=== PATIENT | male | born 1945 | race Two or more races ===

== ENCOUNTER 2023-11-14 12:55 | Emergency (ER) | payer OTHER, MEDICAID ==
[~2023-11-14] VITALS: Ht 167.6 cm; Wt 92.5 kg
[2023-11-14 14:23] VITALS: BP 146/89; PULSE 75; RESP 20; TEMP 98.2; O2SAT 94
[2023-11-14] MEDS ORDERED: PROM1SOL4 PO (14:39)
[2023-11-14] MEDS ORDERED: LEVO500T91 PO (14:39)
== END 2023-11-14 14:48 | disposition home or self-care (01) ==
LOC: ER 12:55
DX: J20.9 Acute bronchitis, unspecified (principal); I10 Essential (primary) hypertension; E78.5 Hyperlipidemia, unspecified
CPT/HCPCS: 71046

== ENCOUNTER 2024-05-02 21:29 | Inpatient (IN) | payer OTHER, MEDICAID ==
[~2024-05-02] VITALS: Ht 172.7 cm; Wt 95.4 kg
[~2024-05-02 21:29] MED LIST: LEVO500T91 PO; PROM1SOL4 PO
[2024-05-02] MEDS: ACETAMINOPHEN 500 MG TAB PO ONE (21:46)
[2024-05-02 22:04] LABS: Basophils # (auto) 0 10 ^3/uL (0-0.2); Basophils % (auto) 0.2 % (0.0-2.0); Eosinophils # (auto) 0 10 ^3/uL (0-0.8); Eosinophils % (auto) 0.1 % (0.0-7.0); Hematocrit 43.6 % (41.0-53.0); Hemoglobin 15.1 g/dL (13.5-17.5); Lymphocytes # (auto) 0.5 10 ^3/uL (0.4-5.4); Lymphocytes % (auto) 4.3 % (10.0-50.0); Mean Corpuscular Hgb Conc. 34.5 g/dL (32.0-36.0); Mean Corpuscular Volume 98.5 fL (80.0-100.0); Monocytes # (auto) 0 10 ^3/uL (0-1.3); Monocytes % (auto) 0.4 % (0.0-12.0); Neutrophils # (auto) 10.1 10 ^3/uL (1.6-8.6); Nucleated Red Blood Cells % 0.1 %; Red Blood Cells 4.43 10^6/uL (4.5-5.90); Red Cell Distribution Width 12.5 % (11.8-14.3); White Blood Cell 10.7 10^3/uL (4.4-10.8)
[2024-05-02 22:22] LABS: Alanine Aminotransferase 13 U/L (7-40); Albumin 3.9 g/dL (3.2-4.8); Alkaline Phosphatase 108 U/L (46-116); Anion Gap 7 (5-15); Aspartate Aminotransferase 16 U/L (13-40); BUN/Creatinine Ratio 9.3 (10.0-20.0); Bilirubin, Total 2.1 mg/dL (0.2-1.0); Blood Urea Nitrogen 10 mg/dL (9-23); Calcium 9.7 mg/dL (8.7-10.4); Carbon Dioxide 21 mmol/L (20-30); Chloride 108 mmol/L (98-107); Glucose 179 mg/dL (74-106); Potassium 3.6 mmol/L (3.5-5.1); Sodium 136 mmol/L (136-145)
[2024-05-02 22:33] LABS: Lactic Acid w/Reflex 2.5 mmol/L (0.4-2.0)
[2024-05-03] VITALS (7 sets, daily range): BP systolic 118–145; BP diastolic 60–72; PULSE 74–95; RESP 15–17; TEMP 98.2–103.2; O2SAT 92–96
[2024-05-03 02:45] LABS: Urine Bacteria None Seen /hpf (None Seen)
[2024-05-03 02:57] LABS: Urine Blood 3+ /uL (Negative); Urine Clarity Ex.Turbid (Clear); Urine Color Dark-Brown (Yellow); Urine Hyaline Cast MOD /lpf (0 - 2); Urine Mucus FEW (None Seen); Urine Protein, UAD 3+ (Negative); Urine Specific Gravity 1.031 (1.001-1.035); Urine Urobilinogen Normal (Negative); Urine WBC 1230 /hpf (0 - 3); Urine WBC Clumps PRESENT /hpf (None Seen); Urine pH 5.5 (5.0-9.0)
[2024-05-03] MEDS: SODIUM CHLORIDE 0.9% 2,000 ML IV ONE (03:12)
[2024-05-03] MEDS: SODIUM CHLORIDE 0.9% 1,000 ML IV ONE (03:36)
[2024-05-03] MEDS: PIPERACILLIN-TAZO 4.5GM 100 ML IV ONE (04:05)
[2024-05-03] MEDS: SODIUM CHLORIDE 0.9% 1,000 ML IV SCH (05:04)
[2024-05-03] MEDS: levoFLOXacin 500MG 100 ML IV SCH (10:00)
[2024-05-03 11:15] LABS: Basophils # (auto) 0 10 ^3/uL (0-0.2); Basophils % (auto) 0.2 % (0.0-2.0); Eosinophils # (auto) 0 10 ^3/uL (0-0.8); Hemoglobin 14.6 g/dL (13.5-17.5); Lymphocytes # (auto) 1.2 10 ^3/uL (0.4-5.4); Mean Corpuscular Hemoglobin 34.2 pg (28.0-32.0)
[2024-05-03 11:16] LABS: Eosinophils % (auto) 0.1 % (0.0-7.0); Hematocrit 42.4 % (41.0-53.0); Lymphocytes % (auto) 6.2 % (10.0-50.0); Mean Corpuscular Hgb Conc. 34.4 g/dL (32.0-36.0); Mean Corpuscular Volume 99.6 fL (80.0-100.0); Monocytes # (auto) 0.7 10 ^3/uL (0-1.3); Monocytes % (auto) 3.7 % (0.0-12.0); Neutrophils # (auto) 16.6 10 ^3/uL (1.6-8.6); Neutrophils % (auto) 89.8 % (37.0-80.0); Red Blood Cells 4.26 10^6/uL (4.5-5.90); Red Cell Distribution Width 12.6 % (11.8-14.3); White Blood Cell 18.5 10^3/uL (4.4-10.8)
[2024-05-03 11:35] LABS: Chloride 109 mmol/L (98-107); Potassium 4.2 mmol/L (3.5-5.1); Sodium 137 mmol/L (136-145)
[2024-05-03 11:36] LABS: Anion Gap 5 (5-15); Calcium 9.5 mg/dL (8.5-10.1); Carbon Dioxide 23 mmol/L (20-30)
[2024-05-03 11:41] LABS: BUN/Creatinine Ratio 10.5 (10.0-20.0); Blood Urea Nitrogen 12 mg/dL (9-23); Glucose 151 mg/dL (74-106)
[2024-05-03] MEDS: ACETAMINOPHEN 325 MG TAB PO PRN (12:21)
[2024-05-03 12:24] LABS: Lactic Acid w/Reflex 2.3 mmol/L (0.4-2.0)
[2024-05-03 13:55] LABS: Hepatitis B Surface Antigen Negative (Negative)
[2024-05-03 13:57] LABS: Hepatitis C Antibody Reactive (Negative)
[2024-05-03] MEDS ORDERED: BENA40TA71 PO (17:23)
[2024-05-03] MEDS ORDERED: AMLO1TAB22 PO (17:24)
[2024-05-03] MEDS ORDERED: TAMS0.4C36 PO (17:24)
[2024-05-04] VITALS (9 sets, daily range): BP systolic 117–141; BP diastolic 55–66; PULSE 62–86; RESP 17–20; TEMP 98.1–100.1; O2SAT 90–97
[2024-05-04] MEDS ORDERED: ERTAPENEM SOD INJ 1 GM in SODIUM CHL 0.9% 50 ML IV SCH (01:45)
[2024-05-04] MEDS: ERTAPENEM SOD INJ 1 GM in SODIUM CHL 0.9% 50 ML IV SCH (09:28)
[2024-05-04 16:31] LABS: Basophils # (auto) 0 10 ^3/uL (0-0.2); Basophils % (auto) 0.2 % (0.0-2.0); Eosinophils # (auto) 0 10 ^3/uL (0-0.8); Eosinophils % (auto) 0.3 % (0.0-7.0); Hematocrit 39.5 % (41.0-53.0); Hemoglobin 13.3 g/dL (13.5-17.5); Lymphocytes # (auto) 1.4 10 ^3/uL (0.4-5.4); Lymphocytes % (auto) 11.2 % (10.0-50.0); Mean Corpuscular Hemoglobin 33.6 pg (28.0-32.0); Mean Corpuscular Hgb Conc. 33.6 g/dL (32.0-36.0); Mean Corpuscular Volume 100.1 fL (80.0-100.0); Monocytes # (auto) 1.1 10 ^3/uL (0-1.3); Monocytes % (auto) 9.1 % (0.0-12.0); Neutrophils # (auto) 9.7 10 ^3/uL (1.6-8.6); Neutrophils % (auto) 79.2 % (37.0-80.0); Red Blood Cells 3.95 10^6/uL (4.5-5.90); Red Cell Distribution Width 12.8 % (11.8-14.3); White Blood Cell 12.2 10^3/uL (4.4-10.8)
[2024-05-05] VITALS (8 sets, daily range): BP systolic 125–148; BP diastolic 62–73; PULSE 52–64; RESP 17–20; TEMP 98.1–99.1; O2SAT 94–100
[2024-05-05 06:37] LABS: Calcium 9.3 mg/dL (8.7-10.4); Chloride 109 mmol/L (98-107); Potassium 4.4 mmol/L (3.5-5.1); Sodium 139 mmol/L (136-145)
[2024-05-05 06:38] LABS: Anion Gap 5 (5-15); Carbon Dioxide 25 mmol/L (20-30)
[2024-05-05 06:43] LABS: BUN/Creatinine Ratio 12.4 (10.0-20.0); Blood Urea Nitrogen 11 mg/dL (9-23); Glucose 114 mg/dL (74-106)
[2024-05-05 07:19] LABS: Basophils # (auto) 0 10 ^3/uL (0-0.2); Eosinophils # (auto) 0.1 10 ^3/uL (0-0.8); Neutrophils % (auto) 73.3 % (37.0-80.0); Red Blood Cells 3.99 10^6/uL (4.5-5.90); Red Cell Distribution Width 12.7 % (11.8-14.3)
[2024-05-05 07:23] LABS: Basophils % (auto) 0.3 % (0.0-2.0); Eosinophils % (auto) 0.7 % (0.0-7.0); Hemoglobin 13.7 g/dL (13.5-17.5); Lymphocytes # (auto) 1.6 10 ^3/uL (0.4-5.4); Lymphocytes % (auto) 15.9 % (10.0-50.0); Mean Corpuscular Hemoglobin 34.4 pg (28.0-32.0); Mean Corpuscular Hgb Conc. 34.3 g/dL (32.0-36.0); Mean Corpuscular Volume 100.3 fL (80.0-100.0); Monocytes % (auto) 9.8 % (0.0-12.0); Neutrophils # (auto) 7.2 10 ^3/uL (1.6-8.6); White Blood Cell 9.8 10^3/uL (4.4-10.8)
[2024-05-06] VITALS (7 sets, daily range): BP systolic 124–161; BP diastolic 64–84; PULSE 52–60; RESP 18; TEMP 97.5–98.4; O2SAT 93–96
[2024-05-06 07:03] LABS: Basophils # (auto) 0 10 ^3/uL (0-0.2); Basophils % (auto) 0.4 % (0.0-2.0); Eosinophils # (auto) 0.2 10 ^3/uL (0-0.8); Eosinophils % (auto) 2.2 % (0.0-7.0); Hematocrit 40.5 % (41.0-53.0); Hemoglobin 13.8 g/dL (13.5-17.5); Lymphocytes # (auto) 1.6 10 ^3/uL (0.4-5.4); Lymphocytes % (auto) 22.1 % (10.0-50.0); Mean Corpuscular Hemoglobin 33.9 pg (28.0-32.0); Mean Corpuscular Hgb Conc. 34.2 g/dL (32.0-36.0); Mean Corpuscular Volume 99.2 fL (80.0-100.0); Monocytes # (auto) 0.8 10 ^3/uL (0-1.3); Monocytes % (auto) 10.5 % (0.0-12.0); Neutrophils # (auto) 4.8 10 ^3/uL (1.6-8.6); Neutrophils % (auto) 64.8 % (37.0-80.0); Nucleated Red Blood Cells % 0.1 %; Red Blood Cells 4.09 10^6/uL (4.5-5.90); White Blood Cell 7.4 10^3/uL (4.4-10.8)
[2024-05-06 07:11] LABS: Anion Gap 5 (5-15); Calcium 9.1 mg/dL (8.5-10.1); Carbon Dioxide 24 mmol/L (20-30); Chloride 110 mmol/L (98-107); Potassium 4.1 mmol/L (3.5-5.1); Sodium 139 mmol/L (136-145)
[2024-05-06 07:17] LABS: BUN/Creatinine Ratio 11.7 (10.0-20.0); Blood Urea Nitrogen 9 mg/dL (9-23); Glucose 107 mg/dL (74-106)
[2024-05-06] MEDS ORDERED: CIPR-173 PO (11:28)
[2024-05-06] MEDS: amLODIPine BESYLATE 5 MG TAB PO SCH (13:34)
== END 2024-05-06 18:43 | disposition home health service (06) | DRG 872 ==
LOC: EDUNIT# 21:29 → ER 21:29 → EDBD 21:29 → TELE 05-03 04:41 → TELE-CENTR 05-03 09:33
PROVIDERS: ADMIT Internal Medicine; ATTEND Internal Medicine
DX: A41.51 Sepsis due to Escherichia coli [E. coli] (principal); N39.0 Urinary tract infection, site not specified; I10 Essential (primary) hypertension; R65.20 Severe sepsis without septic shock; N40.0 Benign prostatic hyperplasia without lower urinary tract symptoms; Z79.899 Other long term (current) drug therapy
CPT/HCPCS: 36415; 76775; 80048; 80053; 81001; 83605; 85025; 86803; 87040; 87077; 87086; 87186; 87340; 96361; 96365; G0378; J1335; J1956; J2543